=== PATIENT | female | born 1990 | race African-American/Black ===

== ENCOUNTER 2019-11-16 08:09 | Emergency (ER) | payer SELFPAY ==
[~2019-11-16] VITALS: Ht 160 cm; Wt 130.0 kg
--- NOTE | 2019-11-16 08:49 | NUR ---
PT HAS CO COUGH, BODY ACHES, DAUGHERTY FOR 1 WEEK AND NOT GETTING BETTER. PT WANTING TO GET TESTED FOR COVID. VSS. RA 93%. PT HAS DRY COUGH. NOT IN RESP DISTRESS. MD AT BEDSIDE.
[2019-11-16 10:51] VITALS: BP 144/78
--- NOTE | 2019-11-16 10:51 | NUR ---
Patient/Caregiver given discharge instructions and they have confirmed that they understand the instructions. Patient ambulatory with steady gait.
== END 2019-11-16 10:53 | disposition home or self-care (01) ==
LOC: ED 09:29
DX: J22 Unspecified acute lower respiratory infection (principal); R07.89 Other chest pain
CPT/HCPCS: 71045; 93005; 99283